=== PATIENT | female | born 1995 | race American Indian/Alaskan Native ===

== ENCOUNTER 2022-02-02 13:53 | Inpatient (IN) | payer MEDICAID ==
[2022-02-02] MEDS ORDERED: fentaNYL 100 MCG/2 ML INJ IV PRN (14:30)
[2022-02-02] MEDS ORDERED: METHYLERGONOVINE MALEATE 0.2 MG/ML VIAL IM PRN (14:30)
[2022-02-02] MEDS ORDERED: ACETAMINOPHEN 325 MG TAB PO PRN (14:30)
[2022-02-02] MEDS ORDERED: OXYTOCIN 10 UNIT/1 ML INJ IM PRN (14:30)
[2022-02-02] MEDS ORDERED: LACTATED RINGERS 1,000 ML IV SCH (14:30)
[2022-02-02] MEDS ORDERED: LOPERAMIDE 2 MG CAP PO PRN (14:30)
[2022-02-02] MEDS ORDERED: TERBUTALINE 1 MG/1 ML INJ SUB-Q PRN (14:30)
[2022-02-02] MEDS ORDERED: LIDOCAINE (2%) 20 MG/1 ML VIAL 20 ML MDV INFILTRATI SCH (14:30)
[2022-02-02] MEDS ORDERED: ePHEDrine SULFATE 50 MG/1 ML INJ IV PRN (15:00)
[2022-02-02] MEDS ORDERED: MINERAL OIL 30 ML ORAL LIQD PO PRN (15:00)
[2022-02-02] MEDS ORDERED: PROMETHAZINE 25 MG TAB PO PRN (15:00)
[2022-02-02] MEDS ORDERED: OXYTOCIN DRIP 30 UNITS/500 ML BAG IV SCH ×3 (15:00→17:00)
[2022-02-02] MEDS ORDERED: ONDANSETRON 4 MG/2 ML INJ IV PRN (15:00)
[2022-02-02] MEDS ORDERED: miSOPROStol 200 MCG TAB PR PRN (15:00)
--- NOTE | 2022-02-02 15:22 | History and Physical Report ---
History of Present Illness Date of examination: 02/02/22 Chief complaint: sent from clinic for induction due to non-compliance with glucose log checks and also cholestasis at term History of present illness: at 37.1wks by LMP c/w U/Sound. care at [facility]. Pt seen at clinic today with c/o intermittent itching and has been on ursodiol med to treat cholestasis. 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 pt denies chest pain or headache, or leakage of fluid or vag bleed; pt admits to movement. labs with O positive, positive ab screen that with repeat testing was neg, rubella immune, VDRL non-reactive, HIV neg, HepBsAg neg and HIV neg. GC/Chlam neg; 1hrgtt 250 and wt gain 51lbs this preg. GBS done yesterday and results not available. 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 History: herpes (no active lesions and pt states she was given no meds) Social history: no significant social history - Obstetrical History Expected Date of Delivery: 02/22/22 Actual Gestation: 37 Week(s) 1 Day(s) : 4 Hx # Term Pregnancies: 1 Spontaneous Abortions: 2 Number of Living Children: 1 Medications and Allergies Allergies Allergy/AdvReac Type Severity Reaction Status Date / Time No Known Allergies Allergy Unverified 02/02/22 14:23 Home Medications Medication Instructions Recorded Confirmed Last Taken Type Tablet 1 tab PO DAILY 02/02/22 02/02/22 01/31/22 History Active Meds: Active Medications Acetaminophen (Acetaminophen 325 Mg Tab) 650 mg PO Q4H PRN PRN Reason: Pain, Mild (1-3) Carboprost Tromethamine (Carboprost Tromethamine 250 Mcg/1 Ml Inj) 250 mcg IM ONCE PRN PRN Reason: Uterine Bleeding Ephedrine Sulfate (Ephedrine Sulfate 50 Mg/1 Ml Inj) 10 mg IV Q2M PRN PRN Reason: Hypotension Fentanyl (Fentanyl 100 Mcg/2 Ml Inj) 100 mcg IV Q2H PRN PRN Reason: Pain,Severe (7-10) LABOR PAIN Oxytocin/Sodium Chloride (Pitocin/Ns 30 Unit/500ml) 30 units in 500 mls @ 2 mls/hr IV TITR SHARATH; Protocol Lactated Ringer's (Lactated Ringers) 1,000 mls @ 125 mls/hr IV DIRECT SHARATH Oxytocin/Sodium Chloride (Pitocin/Ns 30 Unit/500ml) 30 units in 500 mls @ 40 mls/hr IV TITR SHARATH; Protocol Penicillin G Potassium 5 mil. (units/ Sodium Chloride) 50 mls @ 100 mls/hr IV ONCE ONE; Protocol Stop: 02/02/22 16:29 Lidocaine (Lidocaine (2%) 20 Mg/1 Ml Vial 20 Ml Mdv) 20 ml INFILTRATI ONCE@1430 [facility] Stop: 02/03/22 14:29 Loperamide HCl (Loperamide 2 Mg Cap) 2 mg PO ONCE PRN PRN Reason: give with Hemabate Methylergonovine Maleate (Methylergonovine Maleate 0.2 Mg/Ml Vial) 0.2 mg IM ONCE PRN PRN Reason: Uterine Bleeding Mineral Oil (Mineral Oil 30 Ml Oral Liqd) 30 ml PO QHS PRN PRN Reason: Constipation Misoprostol (Misoprostol 200 Mcg Tab) 800 mcg PA ONCE PRN PRN Reason: Uterine Bleeding Misoprostol (Misoprostol 25 Mcg Tab) 25 mcg PO Q4H [facility] Stop: 02/03/22 03:01 Nalbuphine HCl (Nalbuphine 10 Mg/1 Ml Inj) 10 mg IV Q2H PRN PRN Reason: Pain, Moderate (4-6) Ondansetron HCl (Ondansetron 4 Mg/2 Ml Inj) 4 mg IV Q8H PRN PRN Reason: Nausea And Vomiting Oxytocin (Oxytocin 10 Unit/1 Ml Inj) 10 unit IM ONCE PRN PRN Reason: Uterine Bleeding Promethazine HCl (Promethazine 25 Mg Tab) 25 mg PO Q6H PRN PRN Reason: Nausea And Vomiting Terbutaline Sulfate (Terbutaline 1 Mg/1 Ml Inj) 0.25 mg SUB-Q ONCE PRN PRN Reason: Hyperstimulation/Hypertonicity Review of Systems All systems: negative (no complaints) - Vital Signs Vital signs: Vital Signs Temp BP 97.9 F 140/76 02/02/22 14:25 02/02/22 14:25 Temp Pulse Resp BP Pulse Ox 97.9 F 92 H 140/76 02/02/22 14:25 02/02/22 14:29 02/02/22 14:29 - Physical Exam Breasts: Positive: deferred Cardiovascular: Regular rate Lungs: Positive: Normal air movement Abdomen: Positive: soft, distention Genitourinary (Female): Positive: normal external genitalia Vulva: both: normal (no lesions) Vagina: Positive: discharge (yeast infection) Uterus: Positive: enlarged (non-tender) - Obstetrical FHR: category 1 Uterine Contraction Monitor Mode: Palpation Cervical Dilatation: 2 (bulging bag) Cervical Effacement Percentage: 30 station: -3 Uterine Contraction Pattern: Irregular Uterine Contraction Intensity: Mild Results Result Diagrams: 02/02/22 Unknown All other labs normal. 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 Currently with yeast infection. 1. Admit to labor and delivery and give pitocin induction and mckinley bulb 2. Give ursodiol meds for which pt has not been taking 3. Give valtrex med suppression for which pt states she never received 4. obtain routine ob labs and pih labs and bile acids and hgb A1c 5. Will give diflucan 150mg now all questions encouraged and answered
[2022-02-02] MEDS ORDERED: CARBOPROST TROMETHAMINE 250 MCG/1 ML INJ IM PRN (15:30)
[2022-02-02] MEDS ORDERED: PENICILLIN G POTASSIUM 5 MIL.UNITS in SODIUM CHLORIDE 0.9% 50 ML IV ONE (16:00)
[2022-02-02 16:05] LABS: Hematocrit 31.1 % (30.3-42.9); Hemoglobin 9.7 gm/dl (10.1-14.3); Mean Corpuscular HGB Conc 31 % (30-34); Mean Corpuscular Volume 74 fl (79-97); Platelet Count 259 K/mm3 (140-440); Red Blood Count 4.22 M/mm3 (3.65-5.03); Red Cell Distribution Width 17.1 % (13.2-15.2)
--- NOTE | 2022-02-02 16:19 | Event Note ---
Date: 02/02/22 pt evaluated and pelvic unchanged. pt with ctx every 2-4mins mild, offered cook's mckinley double balloon and each with 80cc and same accepted, placed under direct visualization and aseptic technique. Pitocin also added to a max of 10mu/min until the mckinley falls out. May have IV pain med or epidural when desired. 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 They state, pt did not return for follow up exam.
[2022-02-02 16:44] LABS: Alanine Aminotransferase 10 units/L (7-56); Albumin 3.6 g/dL (3.9-5); Blood Urea Nitrogen 6 mg/dL (7-17); Calcium 9.5 mg/dL (8.4-10.2); Hemolysis Index 3; Uric Acid 5.3 mg/dL (3.5-7.6)
[2022-02-02] MEDS ORDERED: URSODIOL 250 MG TAB PO SCH (17:00)
[2022-02-02] MEDS ORDERED: FLUCONAZOLE 100 MG TAB PO ONE (17:00)
[2022-02-02 17:06] LABS: BUN/Creatinine Ratio 12
[2022-02-02] MEDS: NalbUPHINE 10 MG/1 ML INJ IV PRN ×2 (17:06→20:58)
[2022-02-02] MEDS ORDERED: valACYclovir 500 MG TAB PO SCH (19:00)
[2022-02-02 20:07] LABS: Color,Urine Colorless (Yellow)
[2022-02-02 20:09] LABS: Bilirubin,Urine Negative (Negative); Blood,Urine Small (Negative); Protein,Urine <30 mg dL mg/dL (Negative); Urobilinogen,Urine 0.2 mg/dL (<2.0)
[2022-02-02 20:13] LABS: Bacteria,Urine 4+ /HPF (Negative)
[2022-02-02] MEDS ORDERED: INSULIN GLARGINE 100 UNITS/ML SUB-Q STA (21:05)
[2022-02-02] MEDS ORDERED: SODIUM CHLORIDE 0.9% 1000 ML 1,000 ML IV SCH (21:15)
[2022-02-02 21:39] LABS: Creatinine,Urine 45.8 mg/dL (0.1-20.0)
[2022-02-02] MEDS: miSOPROStol 25 MCG TAB PO SCH (21:56)
[2022-02-03] MEDS ORDERED: INSULIN LISPRO 100 UNIT/ML SUB-Q ONE ×2 (00:37→00:44)
--- NOTE | 2022-02-03 00:38 | Ultrasound Report ---
ULTRASOUND OBSTETRIC INDICATION: Gestational diabetes (poorly controlled), gHTN. Clinical Gestational Age (GA): 37.1 weeks TECHNIQUE: Transabdominal. COMPARISON: None available. FINDINGS: There is a single intrauterine with an estimated age of 38.4 weeks based on measurements. Heart Rate: 129 beats per minute. Estimated Weight in grams (if calculated): 3701 Estimated Weight Growth Percentile (if calculated): 95 Position: cephalic. Cervix: closed. Length in cm (if measured): Not measured Placenta: Appears to be located anteriorly and free of the os. Amniotic Fluid Volume: increased Amniotic Fluid Index (THOR) in cm (if calculated): 29.0. Maternal Adnexa: No significant abnormality. IMPRESSION: 1. Single, living intrauterine with estimated sonographic age of 38 weeks, 4 day(s). 2. Increased amniotic fluid index of 29.0 cm. 3. No other significant abnormality. Signer Name: Montez Eugene MD Signed: 02/03/2022 12:34 AM Workstation Name: [email or web address]
[2022-02-03] MEDS: miSOPROStol 25 MCG TAB PO SCH (02:23)
--- NOTE | 2022-02-03 04:25 | Event Note ---
Date: 02/03/22 CC: HD #2 IOL HPI: The patient reports discomfort in the vagina. No vaginal bleeding or leaking of fluid. There is good movement. She was happy to eat dinner. No headaches, diplopia, right upper quadrant pain, or scotomata. O: BP= 148/80 2 hour PP accucheck= 89 EFM= category 2 TOCO= q 3 min SVE= 5/50%/-3. Cook's catheter fell out. AROM'ed and IUPC and FSE placed. LABS: HgBA1c= 7.7 Urine Protein to Creatinine Ratio (UPCR)= 0.76. There is significant proteinuria. Estimated 24 hour urine protein= 989 mg RAD: OB US Limited= SLIUP. Vertex. Anterior placenta. EFW= 3701 g (95th %-ile). THOR= 29 cm. IMPRESSION: 1.) 37 weeks 2.) GDMA2, non-compliant and poorly controlled 3.) Preeclamspia 4.) Polyhydramnios 5.) LGA fetus 5.) Encounter for IOL PLAN: 1.) Now on Lantus 24 units subcutaneously nightly AND Humalog 8 units subcutaneously before meals. 2.) Accu-Cheks hourly once 6 cm dilated and in active labor. 3.) Start Pitocin per protocol. 4.) There are no current signs or symptoms of severe features.
[2022-02-03] MEDS ORDERED: ePHEDrine SULFATE 50 MG/1 ML INJ ONE (04:56)
[2022-02-03] MEDS ORDERED: OXYTOCIN DRIP 30 UNITS/500 ML BAG IV SCH (05:00)
[2022-02-03] MEDS ORDERED: fentaNYL-BUPIV 2 MCG/ML-0.125% 200 MCG/100 ML BAG EPIDURAL SCH (05:32)
[2022-02-03] MEDS ORDERED: NALOXONE 0.4 MG/1 ML INJ IV PRN (05:32)
[2022-02-03] MEDS ORDERED: ePHEDrine SULFATE 50 MG/1 ML INJ IV PRN (05:32)
--- NOTE | 2022-02-03 05:33 | Anesthesia Consultation ---
Anesthesia Consult and Med Hx Date of service: 02/03/22 - Airway Anesthetic Teeth Evaluation: Good ROM Head & Neck: Adequate Mental/Hyoid Distance: Adequate Mallampati Class: Class II Intubation Access Assessment: Probably Good - Pulmonary Exam CTA: Yes - Cardiac Exam Cardiac Exam: RRR - Pre-Operative Health Status ASA Pre-Surgery Classification: ASA2 Proposed Anesthetic Plan: Epidural - Pulmonary Hx Smoking: No Hx Asthma: No Hx Respiratory Symptoms: No SOB: No COPD: No Home Oxygen Therapy: No Hx Pneumonia: No Hx Sleep Apnea: No - Cardiovascular System Hx Hypertension: No Hx Coronary Artery Disease: No Hx Heart Attack/AMI: No Hx Angina: No Hx Percutaneous Transluminal Coronary Angioplasty (PTCA): No Hx Cardia Arrhythmia: No Hx Pacemaker: No Hx Internal Defibrillator: No Hx Valvular Heart Disease: No Hx Heart Murmur: No Hx Peripheral Vascular Disease: No - Central Nervous System Hx Neuromuscular Disorder: No Hx Seizures: No CVA: No Hx Back Pain: No Hx Psychiatric Problems: No - Gastrointestinal Hx Ulcer: No Hx Gastroesophageal Reflux Disease: No - Endocrine Hx Renal Disease: No Hx End Stage Renal Disease: No Hx Cirrhosis: No Hx Liver Disease: No Hx Insulin Dependent Diabetes: No Hx Non-Insulin Dependent Diabetes: No Hx Thyroid Disease: No Hx Hypothyroidism: No Hx Hyperthyroidism: No - Hematic Hx Anemia: No Hx Sickle Cell Disease: No - Other Systems Hx Alcohol Use: No Hx Cancer: No Hx Obesity: No
--- NOTE | 2022-02-03 05:34 | Anesthesia Day of Surgery ---
Anesthesia Day of Surgery - Day of Surgery Patient Examined: Yes Patient H&P Reviewed: Yes Patient is NPO: Yes Beta Blockers: No Cardiac Clearance: No Pulmonary Clearance: No Clyde's Test: N/A
--- NOTE | 2022-02-03 05:38 | Progress Note ---
Labor Epidural - Labor Epidural Start Time: 05:14 Stop Time: 05:20 Performed by:: RUSSELL SHIELDS Procedure: Epidural Requested for Labor Pain. H&P and PT Chart reviewed and consent obtained. Time out performed and the procedure was explained, all questions answered. Patient was placed in a sitting position with monitors applied. The PTs back was prepped and draped in usual sterile fashion. The Skin was localized with 3 mL of 1% lidocaine at L3-L4. A 17-gauge Touhy epidural needle was advanced to VICTOR HUGO with saline at 7 cm and no blood/CSF was noted via epidural needle. Epidural catheter was advanced to 12 cm. There was negative aspiration for blood and CSF in the catheter and negative response to a test dose of 3 ml 1.5% lidocaine w/ Epi and a sterile dressing was applied Patient tolerated the procedure well and there were no immediate complications noted.
[2022-02-03] MEDS ORDERED: BUPIVACAINE/PF (0.25%) 2.5 MG/ML 10 ML VIAL INFILTRATI ONE (06:22)
[2022-02-03] MEDS ORDERED: LIDOCAINE (2%) 20 MG/1 ML VIAL 20 ML MDV INFILTRATI ONE (06:50)
[2022-02-03] MEDS ORDERED: INSULIN LISPRO 100 UNIT/ML SUB-Q SCH (07:30)
--- NOTE | 2022-02-03 07:36 | Procedure Note ---
OB Delivery Note - Delivery Date of Delivery: 02/03/22 Surgeon: TYLER MORFIN Estimated blood loss: 300cc - Vaginal Delivery presentation: vertex Delivery position: OA Intrapartum events: preeclampsia, shoulder dystocia, other(please specify) (GDMA2 (poorly controlled, non-compliant), Polyhydramnios, LGA fetus) Delivery induction: other (Cook's catheter, Pitocin, mucoperiosteal) Delivery augmentation: rupture of membranes Delivery monitor: external FHT, external uterine, internal FHT, internal uterine Route of delivery: Delivery placenta: spontaneous Delivery cord: 3 umbilical vessels Episiotomy: none Delivery laceration: 1st degree, other (Left periurethral laceration) Delivery repair: vicryl Anesthesia: local, epidural Delivery comments: The patient is a 26-year-old at 37-2/7 weeks who is undergoing induction of labor secondary to preeclampsia, GDMA2, polyhydramnios, and intrahepatic cholestasis of . Her gestational diabetes is poorly controlled as her fasting and 2-hour postmeal Accu-Cheks are not within target range; furthermore, she is noncompliant. Cervix was ripen with Cook's catheter, Pitocin, and misoprostol. When Cook's catheter fell out, membranes were artificially ruptured. The patient progressed to complete C/100%/0. She had an epidural in place, but pain control was suboptimal. The patient began to spontaneously push. Ultimately, she produced the head. There was a shoulder dystocia for 5 to 7 seconds long. The shoulder dystocia was resolved by delivering the posterior shoulder of the . The remainder the was delivered atraumatically. The umbilical cord was quickly clamped and cut. Thereafter, the was handed off to the waiting NICU team for further evaluation and management. Respiratory team was present during the delivery. Cord gases were obtained. Cord blood was obtained. The placenta was spontaneously extracted. The placenta was sent for pathologic examination. There was a first-degree perineal laceration and a left periurethral laceration. Lidocaine was used to infiltrate those lacerations. Both of those lacerations were repaired with 3-0 Vicryl in a running fashion with excellent hemostasis. All instruments were removed from the patient's vagina and a finger sweep was pe rformed to confirm this. The patient tolerate the procedure well. She was taken to the mother-baby unit upon stabilization. - A at 1 minute: 4 at 5 minutes: 8 Gender: Female (Weight 4140 g)
[2022-02-03] MEDS ORDERED: MAGNESIUM HYDROXIDE (MOM) ORAL LIQD UDC PO PRN (08:00)
[2022-02-03] MEDS ORDERED: OXYTOCIN DRIP 30,000 MILLIUNITS/500 ML BAG IV ONE (08:07)
[2022-02-03] MEDS: HYDROcodone/ACETAMINOPHEN 5-325 MG TAB PO PRN ×2 (08:15→20:11)
[2022-02-03] MEDS ORDERED: ACETAMINOPHEN 325 MG TAB PO PRN (08:30)
[2022-02-03] MEDS ORDERED: WITCH HAZEL/ GLYCERIN PAD TP PRN (08:30)
[2022-02-03] MEDS ORDERED: BENZOCAINE/MENTHOL 20/0.5% TOP SPRAY 56 GM TP PRN (08:30)
[2022-02-03] MEDS ORDERED: LANOLIN/ZINC/DIMETHICONE (LANSINOH) 7 GM TP PRN (08:30)
[2022-02-03 09:41] LABS: ABG PH TNR pH Units (7.350-7.450)
[2022-02-03 09:43] LABS: ABG HCO3 TNR mmol/L (20.0-26.0); ABG PCO2 TNR mm Hg; ABG PO2 TNR mm Hg (80.0-90.0)
[2022-02-03 09:44] LABS: ABG Base Excess TNR mmol/L (-2.0-3.0); ABG Methemoglobin TNR % (0.0-1.5); ABG Oxygen Saturation TNR % (95.0-99.0); VEN PH TNR (7.320-7.420)
[2022-02-03] MEDS ORDERED: HYDROCORTISONE 25 MG RECTAL SUPP PR PRN (10:00)
[2022-02-03] MEDS: DOCUSATE SODIUM 100 MG CAP PO SCH (21:53)
[2022-02-03] MEDS ORDERED: INSULIN GLARGINE 100 UNITS/ML SUB-Q SCH (22:00)
[2022-02-04] MEDS: HYDROcodone/ACETAMINOPHEN 5-325 MG TAB PO PRN (02:17)
[2022-02-04 07:46] LABS: Hemoglobin 9.2 gm/dl (10.1-14.3); Mean Corpuscular HGB Conc 32 % (30-34); Mean Corpuscular Volume 73 fl (79-97); Platelet Count 226 K/mm3 (140-440); Red Blood Count 3.96 M/mm3 (3.65-5.03); Red Cell Distribution Width 17.1 % (13.2-15.2)
--- NOTE | 2022-02-04 10:20 | Progress Note ---
Assessment and Plan PPD #1 A: S/P Asymptomatic anemia P: Continue routine pp orders Fe rx D/C home per pt request Subjective - Subjective Date of service: 02/04/22 Principal diagnosis: s/p Patient reports: appetite normal, voiding normally, pain well controlled, ambulating normally : doing well, bottle feeding Objective - Vital Signs Latest vital signs: Vital Signs Temp Pulse Resp BP Pulse Ox Pulse Ox 02/04/22 08:30 100 02/04/22 07:48 98.5 F 86 16 124/81 100 02/04/22 03:17 18 02/04/22 02:17 18 02/04/22 00:53 98.3 F 80 18 130/69 99 02/03/22 21:11 18 02/03/22 21:08 98.9 F 91 H 18 126/81 99 02/03/22 20:11 20 02/03/22 20:00 100 02/03/22 16:01 99.2 F 84 16 119/78 100 02/03/22 11:48 98.3 F 97 H 16 138/78 100 Intake and Output 02/03/22 02/04/22 02/04/22 22:59 06:59 14:59 Intake Total 720 360 Output Total 800 800 Balance -80 -440 Intake: Oral 360 Intake, Free Water 360 360 Output: Urine 800 800 Void 800 800 Other: Total, Intake Amount 360 Total, Output Amount 800 800 # Voids Void 1 - Exam Breasts: Present: normal Abdomen: Present: normal appearance, soft, normal bowel sounds Vulva: both: normal Uterus: Present: normal, firm, fundal height below umbilicus Extremities: Present: normal Incision: Present: normal, intact - Labs Labs: Abnormal lab results 02/04/22 Range/Units 07:18 Hgb 9.2 L (10.1-14.3) gm/dl Hct 29.0 L (30.3-42.9) % MCV 73 L (79-97) fl MCH 23 L (28-32) pg RDW 17.1 H (13.2-15.2) %
[2022-02-04] MEDS: PRENATAL VIT27-FE FUMARATE-FOLIC ACID VIT TAB PO SCH (10:35)
[2022-02-04] MEDS: DOCUSATE SODIUM 100 MG CAP PO SCH ×2 (10:35→21:53)
[2022-02-04] MEDS: FERROUS SULFATE 325 MG TAB PO SCH (10:36)
[2022-02-04] MEDS: IBUPROFEN 600 MG TAB PO PRN ×2 (11:02→18:28)
[2022-02-05] MEDS: IBUPROFEN 600 MG TAB PO PRN ×3 (00:25→12:23)
[2022-02-05 08:57] VITALS: BP 129/74
--- NOTE | 2022-02-05 09:11 | Discharge Summary ---
Providers - Providers Date of Admission: 02/02/22 13:54 Date of discharge: 02/05/22 Attending physician: KANDICE HATHAWAY Primary care physician: KANDICE HATHAWAY Hospitalization Reason for admission: induction of labor, other (GDM, poly, preeclampsia,and intrahepatic cholestasis) Delivery: Episiotomy: none Laceration: 1st degree, other (periurethal) Incision: normal, intact Other procedures: none complications: none Discharge diagnosis: IUP at term delivered baby: female Hospital course: Pt was admitted for an IOL for preeclampsia, GDMA2, poly, and intrahepatic cholestasis. She had a with a shoulder dystocia. Pt had no pp complications and was d/c'd home in stable condition. Condition at discharge: Stable Disposition: 01 HOME / SELF CARE / HOMELESS Plan - Discharge Medications Prescriptions: Ferrous Sulfate [Feosol 325 MG tab] 325 mg PO QDAY #30 tablet Ibuprofen [Motrin 600 MG tab] 600 mg PO Q6H PRN #20 tablet PRN Reason: Pain, Mild (1-3) - Provider Discharge Summary Activity: routine, no sex for 6 weeks, no heavy lifting 4 weeks, no strenuous exercise Diet: routine Instructions: routine Additional instructions: [] Smoking cessation referral if applicable(refer to patient education folder for contact #) [] Refer to [facility]'s [facility] Booklet Call your doctor immediately for: * Fever > 100.5 * Heavy vaginal bleeding ( >1 pad per hour) * Severe persistent headache * Shortness of breath * Reddened, hot, painful area to leg or breast * Drainage or odor from incision. * Keep incision clean and dry at all times and follow doctor's instructions regarding bathing/showering - Follow up plan Follow up: KANDICE HATHAWAY MD [Primary Care Provider] - 6 Weeks Forms: [facility] Discharge Summary
[2022-02-05] MEDS: PRENATAL VIT27-FE FUMARATE-FOLIC ACID VIT TAB PO SCH ×2 (12:19→12:21)
[2022-02-05] MEDS: FERROUS SULFATE 325 MG TAB PO SCH (12:19)
[2022-02-05] MEDS: DOCUSATE SODIUM 100 MG CAP PO SCH (12:21)
== END 2022-02-05 14:30 | disposition home or self-care (01) | DRG 774 ==
LOC: TRG 13:53 → LD 13:54 → TRG 14:56 → OB 02-03 09:50
PROVIDERS: ADMIT Obstetrics & Gynecology; ATTEND Obstetrics & Gynecology
PROC: 10E0XZZ Delivery of Products of Conception, External Approach (ICD-10-PCS; principal; 2022-02-03)
PROC: 10907ZC Drainage of Amniotic Fluid, Therapeutic from Products of Conception, Via Natural or Artificial Opening (ICD-10-PCS; 2022-02-03)
PROC: 10H07YZ Insertion of Other Device into Products of Conception, Via Natural or Artificial Opening (ICD-10-PCS; 2022-02-03)
PROC: 3E0R3BZ Introduction of Anesthetic Agent into Spinal Canal, Percutaneous Approach (ICD-10-PCS; 2022-02-03)
PROC: 00HU33Z Insertion of Infusion Device into Spinal Canal, Percutaneous Approach (ICD-10-PCS; 2022-02-03)
PROC: 0U7C7ZZ Dilation of Cervix, Via Natural or Artificial Opening (ICD-10-PCS; 2022-02-03)
PROC: 3E033VJ Introduction of Other Hormone into Peripheral Vein, Percutaneous Approach (ICD-10-PCS; 2022-02-03)
PROC: 0HQ9XZZ Repair Perineum Skin, External Approach (ICD-10-PCS; 2022-02-03)
DX: O24.429 Gestational diabetes mellitus in childbirth, unspecified control (principal); O98.32 Other infections with a predominantly sexual mode of transmission complicating childbirth; O14.94 Unspecified pre-eclampsia, complicating childbirth; O66.0 Obstructed labor due to shoulder dystocia; Z3A.37 37 weeks gestation of pregnancy; Z37.0 Single live birth; Z20.822 Contact with and (suspected) exposure to COVID-19; A60.00 Herpesviral infection of urogenital system, unspecified; O98.82 Other maternal infectious and parasitic diseases complicating childbirth; B37.9 Candidiasis, unspecified; O40.3XX0 Polyhydramnios, third trimester, not applicable or unspecified; O36.63X0 Maternal care for excessive fetal growth, third trimester, not applicable or unspecified; O70.0 First degree perineal laceration during delivery; O26.62 Liver and biliary tract disorders in childbirth; K83.1 Obstruction of bile duct
CPT/HCPCS: 36415; 76816; 80053; 81001; 82239; 82570; 82803; 82962; 83036; 83615; 84156; 84550; 85027; 86592; 86850; 86900; 86901; G0378; J3490; Q9967; J1815; J2300; J2540; J2590; J7030; J7120; U0003